=== PATIENT | female | born 1940 | race Caucasian/White ===

== ENCOUNTER → 2017-05-10 | Outpatient (CLI) | payer OTHER ==
[~2017-05-10] VITALS: Ht 172.7 cm; Wt 77.6 kg
[~2017-05-10] MED LIST: ACETAMINOPHEN-1 EAC2; ACETAMINOPHEN-1 EAC2 PO; AGGRENOX 25 MG1 EACH PO; AMBIEN 10 MG TA10 MG PO; AMBIEN 5 MG TABL5 M1 PO; ASPIR 8181 MG PO; ATENOLOL 100MG100 M2 PO; ATIVAN1 MG PO; AVAPRO 150 MG150 MG PO; AVAPRO300 MG PO; BISACODYL SUPP10 MG RECTAL; CATAPRES-TTS 20.2 M1 TOP; CHLORTHALIDONE25 MG PO; CLONIDINE0.1; CYMBALTA30 MG PO; DURAGESIC1 EAC5 TOP; ENDOCET 5-3251 EACH PO; FASLODEX250 MG/5 M IM; FLEET ENEMA118 ML RC; GABAPENTIN PO; HYDROCHLOROTH12.5 MG PO; HYDROCODON-ACE1 EAC5 PO; HYDROCODONE; HYDROCODONE-AP1 EAC6 PO; LOVENOX INJ; LYRICA150 MG PO; MELATONIN 10 M1 EACH PO; METOPROLOL SUC100 MG PO; MILK OF MA2400 MG/10 PO; MIRALAX17 GM PO; NEURONTIN600 MG PO; NORCO 10-325 T1 EACH PO; NORVASC 5 MG TAB5 MG PO; NORVASC10 MG OR; OMEPRAZOLE40 MG PO; PRILOSEC 20 MG20 MG PO; PROTONIX40 M2 PO; SYNTHROID75 MCG PO; VICODIN PO; VITAMIN B-122500 MCG SUBLING; VITAMIN D-32000 UNIT PO; VITAMINC500 PO; XANAX 0.25 MG0.25 MG PO; ZINC CHELATE50 MG PO; ZOCOR 10 MG TAB10 MG PO
== END ==
LOC: GI 07:18
DX: Z53.9 Procedure and treatment not carried out, unspecified reason (principal)